=== PATIENT | female | born 1980 | race Caucasian/White ===

== ENCOUNTER 2020-04-23 09:20 | Outpatient (REF) | payer OTHER, SELFPAY | END 2020-04-23 09:21 | disposition home or self-care (01) | LOC: HO.LAB 09:20 | PROVIDERS: Visit Provider Nurse Practitioner Family | DX: Z20.828 Contact with and (suspected) exposure to other viral communicable diseases (principal) | CPT/HCPCS: U0003 ==

== ENCOUNTER 2020-06-02 11:57 | Outpatient (REF) | payer OTHER, SELFPAY ==
[2020-06-02 13:55] LABS: MANUAL DIFF FLAG NO
[2020-06-02 13:59] LABS: Basophils Percent Auto 0.3 % (0-2); Eosinophils Percent Auto 0.3 % (0-4); Hemoglobin 15.1 g/dl (12.0-16.0); Imm Gran Abs Auto 0.01 X10*3/uL (0.00-0.03); Imm Gran Pct Auto 0.3 % (0.0-0.4); Lymphocytes Absolute Auto 1.4 X10*3/uL (1.2-4.9); Lymphocytes Percent Auto 39.5 % (20-40); Mean Corpuscular HGB Conc 33.6 g/dl (31.0-35.0); Mean Corpuscular Hemoglobin 31.5 pg (27.0-33.0); Mean Corpuscular Volume 93.8 fL (80-98); Mean Platelet Volume 11.9 fL (9.4-12.3); Monocytes Absolute Auto 0.5 X10*3/uL (0.1-1.2); Monocytes Percent Auto 12.9 % (2-11); Neutrophils Absolute Auto 1.7 X10*3/uL (2.0-8.3); Neutrophils Percent Auto 46.7 % (45-73); Platelet Count 210 X10*3/uL (160-400); White Blood Count 3.7 X10*3/uL (4.8-10.8)
[2020-06-02 14:30] LABS: Anion Gap 14 (12-20); Blood Urea Nitrogen 11 mg/dL (9-16); Calcium 8.5 mg/dL (8.4-10.2); Carbon Dioxide 24 mmol/L (22-29); Chloride 106 mmol/L (96-108); Cholesterol 191 mg/dL; Estimated Glomerular Filt Rate > 60; Glucose Fasting 79 mg/dL (60-99); HDL Cholesterol 58 mg/dL; LDL Cholesterol Calculated 116 mg/dl; Potassium 4.1 mmol/l (3.3-5.1); Sodium 140 mmol/L (135-145); Triglycerides 85 mg/dL
== END 2020-06-02 11:58 | disposition home or self-care (01) ==
LOC: HO.HMGCLDS 11:57
PROVIDERS: PCP Internal Medicine; Visit Provider Internal Medicine
DX: Z00.01 Encounter for general adult medical examination with abnormal findings (principal); R11.2 Nausea with vomiting, unspecified; R12 Heartburn; Z20.828 Contact with and (suspected) exposure to other viral communicable diseases
CPT/HCPCS: 36415; 80048; 80061; 85025

== ENCOUNTER 2021-07-12 11:44 | Outpatient (REF) | payer OTHER, SELFPAY ==
[2021-07-12 12:06] LABS: Binax Internal Control QC Valid; Binax Now Covid-19 Ag Negative (Negative)
== END 2021-07-12 11:45 | disposition home or self-care (01) ==
LOC: HO.HMGCLDS 11:44
PROVIDERS: PCP Internal Medicine; Visit Provider Internal Medicine
DX: Z13.89 Encounter for screening for other disorder (principal)

== ENCOUNTER 2023-01-31 10:42 | Outpatient (AMB) | payer OTHER, SELFPAY ==
[2023-01-31 10:59] VITALS: BP 130/70; PULSE 74; TEMP 36.6; O2SAT 98
--- NOTE | 2023-01-31 10:59 | AM.OFFWIN_ITS ---
Intake Vital Signs 01/31/23 10:59 Height 5 ft 6 in Weight 124 lb BMI 20.0 BP 130/70 Blood Pressure Location Lt brachial Position Sitting Pulse 74 Pulse Source Pulse Oximeter Temp 97.8 F Temp Source Temporal Artery Scan Pulse Oximetry (%) 98 Intake Visit Reasons: EST/arm pain going up into shoulder Intake Note: pt is here for c/o arm pain going into shoulder Patient Tobacco Use Status: Former Tobacco user Accompanied by: Self / Same As Patient Allergies aspirin [ASPIRIN] Allergy (Severe, Verified 01/31/23 11:36) ANAPHYLAXIS, throat closes, chest pain, throat swelling Medication List - Last Reconciled 01/31/23 by Edy Olmstead MD buspirone 7.5 mg PO BID sumatriptan succinate 25 mg PO Q2-4H PRN Do you need a note to return to daycare/school/sports/work: Yes HPI EST/arm pain going up into shoulder HPI Details 42-year-old female presents to the office for a sick visit. Patient is complaining of pain the left side of the neck. Symptoms started a few days ago. Pain is radiating from the left finger up to the neck. She has been diagnosed with fibromyalgia in the past. [facility] Medical History Heartburn Migraine Surgical History History of facial surgery Family History Father No problems noted. Mother Abdominal hernia History of back surgery Heart murmur CVD (cardiovascular disease) Arthritis Brother No problems noted. Brother No problems noted. Brother No problems noted. Sister No problems noted. Son No problems noted. Social History Alcohol intake: current Alcohol intake frequency: a few times a month Alcohol type: wine Patient Tobacco Use Status: Former Tobacco user Physical Exam Vital Signs: Last Vital Signs Temp 97.8 F 01/31/23 10:59 Pulse 74 01/31/23 10:59 BP 130/70 01/31/23 10:59 Pulse Ox 98 01/31/23 10:59 BMI result Body Mass Index 20.0 Const General: cooperative and healthy appearing Nutritional Appearance: well nourished Orientation/consciousness: patient oriented x3 Limitations: no limitations HEENT Head: Yes normal to inspection Eyes General: appearance normal, both eyes and all related structures Neck Other: Discomfort over the left trapezius. Neck: Yes normal visual inspection Resp Effort & Inspection: normal respiratory effort Neuro General: patient oriented x3 Assessment & Plan Assessment & Plan (1) Sprain of cervical neck: Code(s): S13.9XXA - Sprain of joints and ligaments of unspecified parts of neck, initial encounter Plan: Meloxicam and cyclobenzaprine called in. Patient was encouraged to follow-up with her primary care provider. Coding Level of Care Code Est Pt Level 3 (54402) Diagnoses Sprain of cervical neck S13.9XXA
== END 2023-01-31 12:04 | disposition home or self-care (01) ==
PROVIDERS: PCP Internal Medicine; Visit Provider Internal Medicine
DX: S13.9XXA Sprain of joints and ligaments of unspecified parts of neck, initial encounter (principal)
CPT/HCPCS: 99213

== ENCOUNTER 2023-02-15 08:39 | Outpatient (AMB) | payer OTHER, SELFPAY ==
--- NOTE | 2023-02-09 11:13 | MHC.PC.OV ---
Intake Visit Reasons: Annual PE Allergies aspirin [ASPIRIN] Allergy (Severe, Verified 01/31/23 11:36) ANAPHYLAXIS, throat closes, chest pain, throat swelling PFSH Medical History Heartburn Migraine Surgical History History of facial surgery Family History Father No problems noted. Mother Abdominal hernia History of back surgery Heart murmur CVD (cardiovascular disease) Arthritis Brother No problems noted. Brother No problems noted. Brother No problems noted. Sister No problems noted. Son No problems noted. Social History Alcohol intake: current Alcohol intake frequency: a few times a month Alcohol type: wine Patient Tobacco Use Status: Former Tobacco user Physical exam (Primary Care) Tobacco/Smoking Status: Tobacco use Status Patient Tobacco Use Status Former Tobacco user 01/31/23 11:07 Coding Diagnoses
--- NOTE | 2023-02-15 08:42 | A.OFFPC_ITS ---
Vital Signs 02/15/23 08:46 Height 5 ft 6 in Weight 127 lb BMI 20.5 BP 90/60 Blood Pressure Location Lt brachial Position Sitting Pulse 95 Pulse Source Pulse Oximeter Pulse Oximetry (%) 67 L Oxygen Delivery Method Room Air Intake Visit Reasons: Annual PE Intake Note: Pt is here today for her PE Is last menstrual period known: Yes Last menstrual period: 01/26/23 Allergies aspirin [ASPIRIN] Allergy (Severe, Verified 02/15/23 08:50) ANAPHYLAXIS, throat closes, chest pain, throat swelling Medication List - Last Reconciled 02/15/23 by Ambar King MD buspirone 10 mg PO BID meloxicam 15 mg PO DAILY sertraline mg PO Tobacco use date assessed: 02/15/23 Dental Screening Dental Screen Date: 02/15/23 Did you have a dental visit in the last 12 months?: Yes Did you have a dental problem in the last 6 months where you did not have access to dental care?: No Was dental information given to patient?: Patient has dentist HPI Annual PE HPI Details 43-year-old lady here today for physical exam. She is due for her cervical cancer screening and screening mammogram. Has had 3 COVID vaccine has not yet had her booster and is due for her yearly flu shot and also her Tdap. Has anxiety depression currently , [facility], stable and controlled on present treatment Complains of shooting pain in her left palm going up left forearm and up to left shoulder. This started approximately a week ago, no history of trauma, but uses her left hand a lot at work. Has been taking meloxicam which does not afford much improvement in pain, but was prescribed cyclobenzaprine at the walk-in which helps with muscle spasms and helps her relax at night. [facility] Medical History (Updated 02/15/23 @ 09:23 by Ambar King MD) Anxiety and depression Fracture of left distal radius Migraine Surgical History (Updated 02/15/23 @ 08:56 by Ambar King MD) History of facial surgery History of open reduction and internal fixation (ORIF) procedure Family History Father No problems noted. Mother Abdominal hernia History of back surgery Heart murmur CVD (cardiovascular disease) Arthritis Mental health disorder Brother No problems noted. Brother No problems noted. Brother No problems noted. Sister No problems noted. Son No problems noted. Social History (Updated 02/15/23 @ 09:20 by Ambar King MD) Housing: House Alcohol intake: current Alcohol intake frequency: a few times a month Alcohol type: wine Patient Tobacco Use Status: Former Tobacco user e-Cigarette/Vaping Use: Currently Using Substance Use Type: Marijuana service: No Current occupational status: employed Cognitive needs: No Hearing needs: No Vision needs: Yes Female Reproductive History Menstrual Date of last menstrual period: 01/26/23 Questionnaire PHQ-9 Over the last 2 weeks, how often have you been bothered by any of the following problems? 1. Little interest or pleasure in doing things: several days 2. Feeling down, depressed, or hopeless: several days 3. Trouble falling or staying asleep, or sleeping too much: more than half the days 4. Feeling tired or having little energy: not at all 5. Poor appetite or overeating: more than half the days 6. Feeling bad about yourself - or that you are a failure or have let yourself or your family down: not at all 7. Trouble concentrating on things, such as reading the newspaper or watching television: not at all 8. Moving or speaking so slowly that other people could have noticed. Or the opposite - being so fidgety or restless that you have been moving around a lot more than usual: several days 9. Thoughts that you would be better off or of hurting yourself in some way: not at all Total score: 7 Depression Screening Interpretation: Positive (Currently sees [facility] in [place]) Depression Screening Follow-up: Existing condition and In treatment Source: Developed by Drs. Gray Ochoa, Arielle Mar, Travon Mueller and colleagues, with an educational farzaneh from [employer]. Thrive Questionnaire Date Thrive assessed: 02/15/23 I am a: Patient What is your living situation today?: I have a steady place to live Within the past 12 months, did the food you bought not last and you didn't have the money to get more?: Sometimes True Within the past 12 months, did you worry whether your food would run out before you got money to buy more?: Sometimes True Do you have trouble paying for medicines?: No Do you have trouble getting transportation to medical appointments?: Yes Do you have trouble paying your heating and electricity bill?: No Do you have trouble taking care of your child, family member or friend?: No Do you have trouble with day-to-day activities such as bathing, preparing meals, shopping, managing finances, etc.?: No Are you currently unemployed and looking for a job?: No Are you interested in more education?: No Please select the resources that you would like help with: None AUDIT C Alcohol Use Questionnaire (AUDIT-C) 1. How often do you have a drink containing alcohol?: Never 3. How often do you have six or more drinks on one occasion?: Never Total Score: 0 VAUGHN-7 AMB Questionnaire VAUGHN-7 Date VAUGHN - 7 assessed: 02/15/23 Feeling nervous, anxious, or on edge: 1 = Several days Not being able to stop or control worryin = Several days Worrying too much about different things: 1 = Several days Trouble relaxin = Several days Being so restless that it is hard to sit still: 1 = Several days Becoming easily annoyed or irritable: 2 = More than half the days Feeling afraid as if something awful might happen: 0 = Not at all Total VAUGHN-7 score (0-4 normal; 5-9 mild; 10-14 moderate; 15-21 severe): 7 Source: Developed by Drs. Gray Ochoa, Arielle Mar, Travon Mueller and colleagues, with an educational farzaneh from [employer]. Review of Systems Const Denies body aches, Denies fatigue, Denies fever(s), Denies headache(s) and Denies weakness Eyes Denies change in vision, Denies eye discharge, Denies itchy eyes and Reports requires corrective lenses ENT Denies dysphagia, Denies dizziness, Denies headache(s), Denies nasal congestion, Denies nasal discharge and Denies sore throat Card Denies chest pain, Denies lightheadedness, Denies palpitations and Denies dyspnea Resp Denies chest congestion, Denies hemoptysis, Denies excessive phlegm production, Denies pain on inspiration, Denies pain with cough, Denies dyspnea and Denies wheezing GI Denies abdominal pain, Denies melena, Denies bloating, Denies hematochezia, Denies change in bowel habits, Denies dysphagia and Denies hematemesis Denies urinary frequency, Denies dysuria and Denies urinary urgency Musc Denies myalgias, Denies arthralgias and Denies joint swelling Skin/Breast Denies lesions and Denies rash Neuro Denies dizziness, Denies headache(s) and Denies weakness Psych Denies abnormal sleep pattern, Denies anxiety and Denies depression Endo Denies fatigue, Denies polydipsia, Denies polyuria and Denies palpitations Fred/Lymph Denies easy bruising Aller/Immun Denies itchy eyes, Denies seasonal rhinorrhea and Denies wheezing Physical exam (Primary Care) Vital Signs: Last Vital Signs Pulse 95 02/15/23 08:46 BP 90/60 02/15/23 08:46 Pulse Ox 67 L 02/15/23 08:46 Oxygen Delivery Method Room Air 02/15/23 08:46 BMI result Body Mass Index 20.5 Tobacco/Smoking Status: Tobacco use Status Tobacco use date assessed 02/15/23 02/15/23 08:47 Patient Tobacco Use Status Former Tobacco user 02/15/23 08:47 e-Cigarette/Vaping Use Currently Using 02/15/23 08:47 PHQ-9: PHQ-9 Score PHQ-9: Total score 12 02/15/23 08:53 Depression Screening Interpretation: Positive (Currently sees [facility] in [place]) Depression Screening Follow-up: Existing condition and In treatment Thrive Assessment: Date of Thrive Assessment Date Thrive assessed 02/15/23 02/15/23 08:51 Const Orientation/consciousness: patient oriented x3 HENMT Head: Yes normocephalic Ears: hearing grossly normal bilaterally, external ears normal, TM's normal bilaterally and EAC's normal General nose exam: Normal external nose present Face and sinus: Yes face symmetric Mouth: Normal oral and palatal mucosa present, tongue normal, oropharynx normal and moist mucous membranes Throat: Yes posterior oropharynx normal Eyes General: appearance normal, both eyes and all related structures Eyelids: Yes eyelids normal Conjunctivae: conjunctivae normal Sclerae: sclerae normal Pupils: Equal, round and reactive pupils present EOM: EOMs intact bilaterally Neck Neck: Yes normal visual inspection, Yes full ROM, Yes no lymphadenopathy and Yes supple Thyroid: Thyroid normal (Nonpalpable) Chest Chest palpation & inspection: normal inspection of the chest Breast/axilla palpation: normal palpation of the breasts and normal palpation of the axillae Resp Effort & Inspection: normal respiratory effort and able to speak in complete sentences Auscultation: clear to auscultation bilaterally Cardio Bruits: no abdominal aortic bruits GI Inspection: Yes normal to inspection Palpation (GI): No Abdominal aortic bruit present, Soft to palpation, nontender, no guarding and no masses General: Yes bladder normal to palpation and Yes no CVA tenderness External Female Exam: normal external appearance and normal appearance of the urethra Speculum Exam - Vagina: normal appearance of the vagina, normal palpation and normal vaginal discharge Speculum Exam - Cervix: normal appearance of the cervix and normal palpation Bimanual exam- vagina & uterus: normal bimanual exam, normal palpation, bladder normal to palpation, consistency normal, normal palpation and non-tender Bimanual Exam- Adnexa, other: normal adnexae, no masses, normal and No adnexal tenderness Back/Spine/Pelvis Back: no CVA tenderness Skin General skin exam: no rashes or lesions noted Neuro General: patient oriented x3, gait normal, moves all extremities, Normal light touch and pain sensation, no focal motor deficits, CN's II-XI intact bilaterally and normal sensation to monofilament Cranial nerves: Yes Equal, round and reactive pupils present Extrem Other: Tender nodular lesion on palm of left hand below the 3rd and 4th finger General: Yes normal to inspection, Yes full ROM, Yes no joint enlargement, Yes no clubbing, cyanosis or edema, Yes no calf tenderness and Yes normal gait Psych Appearance: grossly normal and well kempt Mental Status: mental status grossly normal Speech and movement: Normal speech and movement present Affect: normal affect Attitude: cooperative Thought process: Normal thought process present Thought content: Normal thought content present Assessment and Plan Assessment & Plan (1) Pain in left hand: Code(s): M79.642 - Pain in left hand Plan: Orthopedics consult obtain (2) Encounter for general adult medical examination with abnormal findings: Code(s): Z00.01 - Encounter for general adult medical examination with abnormal findings Plan: Will check appropriate labs. Recommended dental visit every 6 months and regular eye exams, at least every 2 years. Take adequate calcium in diet and vitamin-D 3 at 2000 IU per cap once a day, in addition to weight-bearing exercises to help maintain good muscle tone and weight control. Instructed to do self-breast exam, and scheduled for her initial yearly mammogram. Will cancer screening done. Recommended to get her COVID booster, Tdap given today, advised to get yearly flu shots. (3) Anxiety and depression: Comment: [facility] Code(s): F41.9 - Anxiety disorder, unspecified; F32.A - Depression, unspecified Plan: Currently followed by [facility], stable and controlled on present treatment (4) Cervical cancer screening: Code(s): Z12.4 - Encounter for screening for malignant neoplasm of cervix Plan: Pap smear done today Orders: Orders MM screening mammo BI Today Z12.31 - Encounter for screening mammogram for malignant neoplasm of breast Alanine Aminotransferase Today F32.A - Depression, unspecified, F41.9 - Anxiety disorder, unspecified, M79.642 - Pain in left hand, Z00.01 - Encounter for general adult medical examination with abnormal findings, Z13.1 - Encounter for screening for diabetes mellitus, Z13.220 - Encounter for screening for lipoid disorders Aspartate Amino Transferase Today F32.A - Depression, unspecified, F41.9 - Anxiety disorder, unspecified, M79.642 - Pain in left hand, Z00.01 - Encounter for general adult medical examination with abnormal findings, Z13.1 - Encounter for screening for diabetes mellitus, Z13.220 - Encounter for screening for lipoid disorders Glucose Fasting Today F32.A - Depression, unspecified, F41.9 - Anxiety disorder, unspecified, M79.642 - Pain in left hand, Z00.01 - Encounter for general adult medical examination with abnormal findings, Z13.1 - Encounter for screening for diabetes mellitus, Z13.220 - Encounter for screening for lipoid disorders Lipid Panel Today F32.A - Depression, unspecified, F41.9 - Anxiety disorder, unspecified, M79.642 - Pain in left hand, Z00.01 - Encounter for general adult medical examination with abnormal findings, Z13.1 - Encounter for screening for diabetes mellitus, Z13.220 - Encounter for screening for lipoid disorders Vitamin D 25-OH Total Today F32.A - Depression, unspecified, F41.9 - Anxiety disorder, unspecified, M79.642 - Pain in left hand, Z00.01 - Encounter for general adult medical examination with abnormal findings, Z13.1 - Encounter for screening for diabetes mellitus, Z13.220 - Encounter for screening for lipoid disorders TDaP Immunization Today Z23 - Encounter for immunization Pap Smear Today Z12.4 - Encounter for screening for malignant neoplasm of cervix Referrals Orthopedics Referral M79.642 - Pain in left hand Medications: New Boostrix Tdap (diphth,pertus(acell),tetanus) 0.5 mL IM ONCE 0.5 mL 0RF NS Z23 - Encounter for immunization Coding Level of Care Code Est Pt Prev Care 40-64y(99298) Diagnoses Pain in left hand M79.642 Encounter for general adult medical examination with abnormal findings Z00.01 Anxiety and depression F41.9; F32.A Cervical cancer screening Z12.4
[2023-02-15 08:46] VITALS: BP 90/60; PULSE 95; O2SAT 67; BMI 20.5
--- NOTE | 2023-02-15 09:41 | A.OFFPC_ITS ---
Vital Signs 02/15/23 08:46 Height 5 ft 6 in Weight 127 lb BMI 20.5 BP 90/60 Blood Pressure Location Lt brachial Position Sitting Pulse 95 Pulse Source Pulse Oximeter Pulse Oximetry (%) 67 L Oxygen Delivery Method Room Air Intake Visit Reasons: Annual PE Allergies aspirin [ASPIRIN] Allergy (Severe, Verified 02/15/23 08:50) ANAPHYLAXIS, throat closes, chest pain, throat swelling Medication List - Last Reconciled 02/15/23 by Ambar King MD buspirone 10 mg PO BID meloxicam 15 mg PO DAILY sertraline mg PO Tobacco use date assessed: 02/15/23 HPI Annual PE HPI Details 43-year-old lady here today for physical exam. She has anxiety depression currently on buspirone 10 mg taken twice a day and sertraline currently followed by psych associates in [place]. She has been feeling well except for pain in the palm of her left hand, which has been present now for several weeks. Unable to do repetitive motion with her left hand. She does have history of stress fracture status post surgery in 2014. [facility] Medical History (Updated 02/15/23 @ 09:23 by Ambar King MD) Anxiety and depression Fracture of left distal radius Migraine Surgical History (Updated 02/15/23 @ 08:56 by Ambar King MD) History of facial surgery History of open reduction and internal fixation (ORIF) procedure Family History Father No problems noted. Mother Abdominal hernia History of back surgery Heart murmur CVD (cardiovascular disease) Arthritis Mental health disorder Brother No problems noted. Brother No problems noted. Brother No problems noted. Sister No problems noted. Son No problems noted. Social History (Updated 02/15/23 @ 09:20 by Ambar King MD) Housing: House Alcohol intake: current Alcohol intake frequency: a few times a month Alcohol type: wine Patient Tobacco Use Status: Former Tobacco user e-Cigarette/Vaping Use: Currently Using Substance Use Type: Marijuana service: No Current occupational status: employed Cognitive needs: No Hearing needs: No Vision needs: Yes Questionnaire PHQ-9 Over the last 2 weeks, how often have you been bothered by any of the following problems? 1. Little interest or pleasure in doing things: several days 2. Feeling down, depressed, or hopeless: several days 3. Trouble falling or staying asleep, or sleeping too much: more than half the days 4. Feeling tired or having little energy: not at all 5. Poor appetite or overeating: more than half the days 6. Feeling bad about yourself - or that you are a failure or have let yourself or your family down: not at all 7. Trouble concentrating on things, such as reading the newspaper or watching television: not at all 8. Moving or speaking so slowly that other people could have noticed. Or the opposite - being so fidgety or restless that you have been moving around a lot more than usual: several days 9. Thoughts that you would be better off or of hurting yourself in some way: not at all Total score: 7 Depression Screening Interpretation: Positive (Currently sees [facility] in [place]) Depression Screening Follow-up: Existing condition and In treatment Source: Developed by Drs. Gray Ochoa, Arielle Mar, Travon Mueller and colleagues, with an educational farzaneh from [employer]. Thrive Questionnaire Date Thrive assessed: 02/15/23 I am a: Patient What is your living situation today?: I have a steady place to live Within the past 12 months, did the food you bought not last and you didn't have the money to get more?: Sometimes True Within the past 12 months, did you worry whether your food would run out before you got money to buy more?: Sometimes True Please select the resources that you would like help with: None AUDIT C Alcohol Use Questionnaire (AUDIT-C) 1. How often do you have a drink containing alcohol?: Never 3. How often do you have six or more drinks on one occasion?: Never Total Score: 0 VAUGHN-7 AMB Questionnaire VAUGHN-7 Date VAUGHN - 7 assessed: 02/15/23 Feeling nervous, anxious, or on edge: 1 = Several days Not being able to stop or control worryin = Several days Worrying too much about different things: 1 = Several days Trouble relaxin = Several days Being so restless that it is hard to sit still: 1 = Several days Becoming easily annoyed or irritable: 2 = More than half the days Feeling afraid as if something awful might happen: 0 = Not at all Total VAUGHN-7 score (0-4 normal; 5-9 mild; 10-14 moderate; 15-21 severe): 7 Source: Developed by Drs. Gray Ochoa, Arielle Mar, Travon Mueller and colleagues, with an educational farzaneh from [email or web address]. Review of Systems Const Denies body aches, Denies fatigue, Denies fever(s), Denies headache(s) and Denies weakness Eyes Denies change in vision and Reports requires corrective lenses ENT Denies dysphagia, Denies dizziness, Denies headache(s), Denies nasal congestion, Denies nasal discharge and Denies sore throat Card Denies chest pain, Denies lightheadedness, Denies palpitations and Denies dyspnea Resp Denies chest congestion, Denies dyspnea and Denies wheezing GI Denies abdominal pain, Denies melena, Denies bloating, Denies change in bowel habits and Denies dysphagia Denies urinary frequency, Denies dysuria and Denies urinary urgency Musc Denies myalgias, Denies arthralgias and Denies joint swelling Skin/Breast Denies lesions and Denies rash Neuro Denies dizziness, Denies headache(s) and Denies weakness Psych Reports as per HPI Endo Denies fatigue, Denies polydipsia, Denies polyuria and Denies palpitations Fred/Lymph Denies easy bruising Aller/Immun Denies seasonal rhinorrhea and Denies wheezing Physical exam (Primary Care) Vital Signs: Last Vital Signs Pulse 95 02/15/23 08:46 BP 90/60 02/15/23 08:46 Pulse Ox 67 L 02/15/23 08:46 Oxygen Delivery Method Room Air 02/15/23 08:46 BMI result Body Mass Index 20.5 Tobacco/Smoking Status: Tobacco use Status Tobacco use date assessed 02/15/23 02/15/23 09:42 Patient Tobacco Use Status Former Tobacco user 02/15/23 09:42 e-Cigarette/Vaping Use Currently Using 02/15/23 09:42 PHQ-9: PHQ-9 Score PHQ-9: Total score 7 02/15/23 09:42 Depression Screening Interpretation: Positive (Currently sees [facility] in [place]) Depression Screening Follow-up: Existing condition and In treatment Thrive Assessment: Date of Thrive Assessment Date Thrive assessed 02/15/23 02/15/23 09:42 Immunizations Boostrix Tdap Performing Provider: Ambar King MD Administered by: Lucinda Holt CMA on 02/15/23 09:41 Dose Route Admin Location Lot Number Expiration Date NDC Large [employer] Techn[employer] 0.5 mL IM Right Deltoid [id number] 03/28/25 71159-725-47 UUCUN VIS Given Date VIS Provided VIS Publication Date 02/15/23 Single Vaccine 21 Eligibility Eligibility Date Funding Source Not [facility] Eligible 02/15/23 Private Assessment and Plan Assessment & Plan (1) Encounter for general adult medical examination with abnormal findings: Code(s): Z00.01 - Encounter for general adult medical examination with abnormal findings (2) Anxiety and depression: Comment: [facility] Code(s): F41.9 - Anxiety disorder, unspecified; F32.A - Depression, unspecified Orders: Orders MM screening mammo BI 02/15/23 Z12.31 - Encounter for screening mammogram for malignant neoplasm of breast Alanine Aminotransferase 02/15/23 F32.A - Depression, unspecified, F41.9 - Anxiety disorder, unspecified, M79.642 - Pain in left hand, Z00.01 - Encounter for general adult medical examination with abnormal findings, Z13.1 - Encounter for screening for diabetes mellitus, Z13.220 - Encounter for screening for lipoid disorders Aspartate Amino Transferase 02/15/23 F32.A - Depression, unspecified, F41.9 - Anxiety disorder, unspecified, M79.642 - Pain in left hand, Z00.01 - Encounter for general adult medical examination with abnormal findings, Z13.1 - Encounter for screening for diabetes mellitus, Z13.220 - Encounter for screening for lipoid disorders Glucose Fasting 02/15/23 F32.A - Depression, unspecified, F41.9 - Anxiety disorder, unspecified, M79.642 - Pain in left hand, Z00.01 - Encounter for general adult medical examination with abnormal findings, Z13.1 - Encounter for screening for diabetes mellitus, Z13.220 - Encounter for screening for lipoid disorders Lipid Panel 02/15/23 F32.A - Depression, unspecified, F41.9 - Anxiety disorder, unspecified, M79.642 - Pain in left hand, Z00.01 - Encounter for general adult medical examination with abnormal findings, Z13.1 - Encounter for screening for diabetes mellitus, Z13.220 - Encounter for screening for lipoid disorders Vitamin D 25-OH Total 02/15/23 F32.A - Depression, unspecified, F41.9 - Anxiety disorder, unspecified, M79.642 - Pain in left hand, Z00.01 - Encounter for general adult medical examination with abnormal findings, Z13.1 - Encounter for screening for diabetes mellitus, Z13.220 - Encounter for screening for lipoid disorders TDaP Immunization 02/15/23 Z23 - Encounter for immunization Pap Smear 02/15/23 Z12.4 - Encounter for screening for malignant neoplasm of cervix Referrals Orthopedics Referral M79.642 - Pain in left hand Coding Diagnoses Encounter for general adult medical examination with abnormal findings Z00.01 Anxiety and depression F41.9; F32.A
== END 2023-02-15 10:25 | disposition home or self-care (01) ==
PROVIDERS: PCP Internal Medicine; Visit Provider Internal Medicine
DX: Z00.01 Encounter for general adult medical examination with abnormal findings (principal); M79.642 Pain in left hand; F41.9 Anxiety disorder, unspecified; F32.A Depression, unspecified; Z23 Encounter for immunization
CPT/HCPCS: 90471; 90715; 99396

== ENCOUNTER 2023-02-15 09:34 | Outpatient (REF) | payer OTHER, SELFPAY ==
[2023-02-15 12:44] LABS: Alanine Aminotransferase 17 U/L (0-31); Aspartate Amino Transferase 24 U/L (5-31); Cholesterol 214 mg/dL (<200); Glucose Fasting 69 mg/dL (60-99); HDL Cholesterol 67 mg/dL (>40); LDL Cholesterol Calculated 135 mg/dL (<100); Triglycerides 60 mg/dL (<150); Vitamin D 25-OH Total 19.1 ng/mL (>30)
== END 2023-02-15 09:35 | disposition home or self-care (01) ==
LOC: HO.HMGCLDS 09:34
PROVIDERS: PCP Internal Medicine; Visit Provider Internal Medicine
DX: Z00.01 Encounter for general adult medical examination with abnormal findings (principal); Z13.1 Encounter for screening for diabetes mellitus; Z13.220 Encounter for screening for lipoid disorders; M79.642 Pain in left hand; F32.A Depression, unspecified; F41.9 Anxiety disorder, unspecified
CPT/HCPCS: 36415; 80061; 82306; 82947; 84450; 84460

== ENCOUNTER 2023-02-15 10:40 | Outpatient (REF) | payer OTHER, SELFPAY ==
[2023-02-20 18:49] LABS: HPV mRNA E6/E7 rflx Not Detected (Not Detected)
== END 2023-02-15 10:41 | disposition home or self-care (01) ==
LOC: HO.LAB 10:40
PROVIDERS: Visit Provider Internal Medicine
DX: Z12.4 Encounter for screening for malignant neoplasm of cervix (principal); Z11.51 Encounter for screening for human papillomavirus (HPV)
CPT/HCPCS: 87624; 88142

== ENCOUNTER 2023-02-21 09:43 | Outpatient (AMB) | payer OTHER, SELFPAY ==
--- NOTE | 2023-02-21 09:50 | A.OFFVIS_ITS ---
Intake Vital Signs 02/21/23 09:53 Height 5 ft 6 in Weight 127 lb BMI 20.5 Handedness Right Intake Visit Reasons: [employer]-Pain in left hand Intake Note: Jolynn is a 43 year old right hand dominant female who presents today as a new patient for a evaluation for her left hand pain. Patient reports ongoing numbness and pain. She states that her pain radiate up to her shoulder. Having off and on numbness on her RF and PF and its worse at night. Allergies aspirin [ASPIRIN] Allergy (Severe, Verified 02/21/23 09:53) ANAPHYLAXIS, throat closes, chest pain, throat swelling Medication List - Last Reconciled 02/21/23 by Alexandra Ghosh MD buspirone 10 mg PO BID cyclobenzaprine 10 mg PO BEDTIME PRN meloxicam 15 mg PO DAILY sertraline mg PO HPI HPI Comments History of Present Illness Details She appeared tearful, says she is annoyed and have not slept well due to pain and worry. 3 weeks, no fall/injury she can remembers. Points to middle of palm, that turned into swelling, bruising, knot. First noticed neck hurting at night, then it radiated to shoulder blade. Over few days, she noticed the changes on her hand. Can't hold phone due to pain. Does not lock on fingers. left 4th and 5th finger numbness. Symptoms from left although she is right handed. Also has neck pain. Denies elbow pain. No fever. 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 Treatment done so far: NSAIDs - meloxicam. Flexeril for night time. therapy - none injection - none surgery - none PFS Medical History (Updated 02/21/23 @ 10:09 by Alexandra Ghosh MD) Anxiety and depression Fracture of left distal radius Migraine Surgical History (Updated 02/15/23 @ 08:56 by Ambar King MD) History of facial surgery History of open reduction and internal fixation (ORIF) procedure Family History Father No problems noted. Mother Abdominal hernia History of back surgery Heart murmur CVD (cardiovascular disease) Arthritis Mental health disorder Brother No problems noted. Brother No problems noted. Brother No problems noted. Sister No problems noted. Son No problems noted. Social History Housing: House Alcohol intake: current Alcohol intake frequency: a few times a month Alcohol type: wine Patient Tobacco Use Status: Former Tobacco user e-Cigarette/Vaping Use: Currently Using Substance Use Type: Marijuana service: No Current occupational status: employed Cognitive needs: No Hearing needs: No Vision needs: Yes Review of Systems Const All systems reviewed & are unremarkable except as noted in HPI and below Physical Exam Vital Signs: BMI result Body Mass Index 20.5 Constitutional: Patient appears to be in no acute distress, well nourished and well developed. MSK: Inspection reveals appropriate head and neck positioning. She is diffusely tender on several areas including right shoulder and right hand. Although she is not tender on any side spinous processes and not tender in elbow. Cervical ROM was full. Spurling's sign negative. But it aggravated some tightness on upper trapezius P Could not range the right shoulder due to pain. Hawkin's test is could not do due to pain. Could not do empty can sign due to pain. No intrinsic hand weakness noted. No atrophy noted. Ruba test negative. Carpal compression test negative. Tinel sign negative. Tender even to light touch on right palm. No triggering of fingers. Strength is 5/5 in all muscle groups tested. No increased tone noted. Neurological: Neurologic examination of the upper and lower extremities was nonfocal with intact sensation, muscle stretch reflexes and without focal motor deficits . Allred?s negative bilaterally. Babinski was down going bilaterally. Clonus was negative. Gait is non-antalgic without loss of balance. Results Reviewed Results Reviewed: No past imaging available for my review. I reviewed records from the following: She recently went to walk-in clinic for cervical strain. Prescribed NSAIDs and Flexeril. Assessment & Plan Assessment & Plan (1) Hand pain: Code(s): M79.643 - Pain in unspecified hand (2) Cervical radiculitis: Code(s): M54.12 - Radiculopathy, cervical region (3) Shoulder pain: Code(s): M25.519 - Pain in unspecified shoulder Plan Difficult to pinpoint exactly where pain is coming from. However no neurologic findings on exam except in areas where she is limited by pain. We will start with doing imaging today: Cervical x-ray, shoulder x-ray including shoulder please, right hand/wrist. Will re-evaluate next week after imaging has been done. She wants to go back to work but until x-rays have been done, I will keep her out of work for today. Assessment and plan discussed with patent, and patient was agreeable. All questions were answered thoroughly. Orders: Orders XR hand wrist LT Today M79.643 - Pain in unspecified hand XR shoulder LT min 2V Today M25.519 - Pain in unspecified shoulder XR cervical spine 3V Today M54.12 - Radiculopathy, cervical region Coding Level of Care Code New Pt Level 4 (85732) Diagnoses Hand pain M79.643 Cervical radiculitis M54.12 Shoulder pain M25.519
[2023-02-21 09:53] VITALS: BMI 20.5
== END 2023-02-21 10:29 | disposition home or self-care (01) ==
PROVIDERS: PCP Internal Medicine; Visit Provider Physical Medicine & Rehabilitation
DX: M79.642 Pain in left hand (principal); M54.12 Radiculopathy, cervical region; M25.512 Pain in left shoulder
CPT/HCPCS: 99203

== ENCOUNTER 2023-02-21 09:43 | Outpatient (REF) | payer OTHER, SELFPAY ==
--- NOTE | ~2023-02-21 | XR_ITS ---
EXAMINATION: XR CERVICAL SPINE XR LEFT SHOULDER XR LEFT HAND AND WRIST CLINICAL INDICATIONS: Radiculopathy and neck pain. COMPARISON: None available. TECHNIQUE: Left hand 4 views. Left shoulder 2 views and cervical spine 3 views. FINDINGS: CERVICAL SPINE: There is mild straightening of cervical lordosis. The vertebral heights, alignment and disc heights are normal. No visible acute fracture, dislocation or subluxation seen. No bony erosive changes. The soft tissues are normal. LEFT SHOULDER: The glenohumeral and acromioclavicular joint alignment is normal. No fracture, dislocation, loose bodies or bony erosive changes. There is no soft tissue calcification. LEFT HAND: The metacarpophalangeal, proximal interphalangeal and distal interphalangeal joints are maintained normal. No bony erosive changes, enthesophytes or soft tissue swelling is seen. There is an old ulnar styloid process unhealed fracture. There is a volar distal radial plate and screws for an old healed fracture. The carpal bones are unremarkable. XR/XR hand wrist LT IMPRESSION: 1. Mild straightening of cervical lordosis otherwise unremarkable cervical spine exam. 2. Unremarkable left shoulder. 3. Old healed distal radial fracture with hardware. Unhealed ulnar styloid process fracture. No acute fracture or dislocation seen in the left hand or wrist area.
--- NOTE | ~2023-02-21 | XR_ITS ---
EXAMINATION: XR CERVICAL SPINE XR LEFT SHOULDER XR LEFT HAND AND WRIST CLINICAL INDICATIONS: Radiculopathy and neck pain. COMPARISON: None available. TECHNIQUE: Left hand 4 views. Left shoulder 2 views and cervical spine 3 views. FINDINGS: CERVICAL SPINE: There is mild straightening of cervical lordosis. The vertebral heights, alignment and disc heights are normal. No visible acute fracture, dislocation or subluxation seen. No bony erosive changes. The soft tissues are normal. LEFT SHOULDER: The glenohumeral and acromioclavicular joint alignment is normal. No fracture, dislocation, loose bodies or bony erosive changes. There is no soft tissue calcification. LEFT HAND: The metacarpophalangeal, proximal interphalangeal and distal interphalangeal joints are maintained normal. No bony erosive changes, enthesophytes or soft tissue swelling is seen. There is an old ulnar styloid process unhealed fracture. There is a volar distal radial plate and screws for an old healed fracture. The carpal bones are unremarkable. XR/XR shoulder LT min 2V IMPRESSION: 1. Mild straightening of cervical lordosis otherwise unremarkable cervical spine exam. 2. Unremarkable left shoulder. 3. Old healed distal radial fracture with hardware. Unhealed ulnar styloid process fracture. No acute fracture or dislocation seen in the left hand or wrist area.
--- NOTE | ~2023-02-21 | XR_ITS ---
EXAMINATION: XR CERVICAL SPINE XR LEFT SHOULDER XR LEFT HAND AND WRIST CLINICAL INDICATIONS: Radiculopathy and neck pain. COMPARISON: None available. TECHNIQUE: Left hand 4 views. Left shoulder 2 views and cervical spine 3 views. FINDINGS: CERVICAL SPINE: There is mild straightening of cervical lordosis. The vertebral heights, alignment and disc heights are normal. No visible acute fracture, dislocation or subluxation seen. No bony erosive changes. The soft tissues are normal. LEFT SHOULDER: The glenohumeral and acromioclavicular joint alignment is normal. No fracture, dislocation, loose bodies or bony erosive changes. There is no soft tissue calcification. LEFT HAND: The metacarpophalangeal, proximal interphalangeal and distal interphalangeal joints are maintained normal. No bony erosive changes, enthesophytes or soft tissue swelling is seen. There is an old ulnar styloid process unhealed fracture. There is a volar distal radial plate and screws for an old healed fracture. The carpal bones are unremarkable. XR/XR cervical spine 3V IMPRESSION: 1. Mild straightening of cervical lordosis otherwise unremarkable cervical spine exam. 2. Unremarkable left shoulder. 3. Old healed distal radial fracture with hardware. Unhealed ulnar styloid process fracture. No acute fracture or dislocation seen in the left hand or wrist area.
== END 2023-02-21 09:44 | disposition home or self-care (01) ==
LOC: HO.HOSX 09:43
PROVIDERS: PCP Internal Medicine; Visit Provider Physical Medicine & Rehabilitation
DX: M54.12 Radiculopathy, cervical region (principal); M25.512 Pain in left shoulder; M79.642 Pain in left hand
CPT/HCPCS: 72040; 73030; 73110; 73130

== ENCOUNTER 2023-02-28 | Outpatient (REF) | payer OTHER, SELFPAY | END 2023-02-28 00:01 | disposition home or self-care (01) | LOC: CF | PROVIDERS: Visit Provider Physical Medicine & Rehabilitation | DX: M77.02 Medial epicondylitis, left elbow (principal); M79.18 Myalgia, other site; R20.0 Anesthesia of skin | CPT/HCPCS: 20552; 99212 ==

== ENCOUNTER 2023-02-28 10:27 | Outpatient (AMB) | payer OTHER, SELFPAY ==
--- NOTE | 2023-02-28 10:38 | A.OFFVIS_ITS ---
Intake Vital Signs 02/28/23 10:39 Height 5 ft 6 in Weight 127 lb BMI 20.5 Intake Visit Reasons: ov-Pain in left hand Intake Note: Jolynn is a 43 year old female who presents today for a follow up of her left hand pain. She reports that her symptoms have remained about the same, although she now additionally has increased pain on the ulnar aspect of the hand that radiates to the elbow. Allergies aspirin [ASPIRIN] Allergy (Severe, Verified 02/28/23 10:40) ANAPHYLAXIS, throat closes, chest pain, throat swelling Medication List - Last Reconciled 02/28/23 by Alexandra Ghosh MD buspirone 10 mg PO BID cyclobenzaprine 10 mg PO BEDTIME PRN meloxicam 15 mg PO DAILY sertraline mg PO HPI HPI Comments History of Present Illness Details On last consult, she reported 3 weeks of left hand pain, no fall/injury she can remembers. Pointed to middle of palm, that turned into swelling, bruising, knot. First noticed neck hurting at night, then it radiated to shoulder blade. Over few days, she noticed the changes on her hand. Can't hold phone due to pain. Does not lock on fingers. left 4th and 5th finger numbness. Symptoms from left although she is right handed. Also has neck pain. Denies elbow pain. No fever. 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 Treatment done so far: NSAIDs - meloxicam. Flexeril for night time. therapy - none injection - none surgery - none Since last visit, we have done x-rays. Left cervical x-ray showed strengthening of lordosis, preserved disc spaces. Left hand x-ray - essentially unremarkable, no erosions, old healed ulnar styloid fracture Left shoulder [id number] unremarkable. Today pain still coming from left hand. Got worse, affecting all of left hand, going up the elbow. Finger numbness. [facility] Medical History (Updated 02/28/23 @ 10:58 by Alexandra Ghosh MD) Hand numbness Myofascial pain Anxiety and depression Fracture of left distal radius Migraine Surgical History History of open reduction and internal fixation (ORIF) procedure History of facial surgery Family History Father No problems noted. Mother Abdominal hernia History of back surgery Heart murmur CVD (cardiovascular disease) Arthritis Mental health disorder Brother No problems noted. Brother No problems noted. Brother No problems noted. Sister No problems noted. Son No problems noted. Social History Housing: House Alcohol intake: current Alcohol intake frequency: a few times a month Alcohol type: wine Patient Tobacco Use Status: Former Tobacco user e-Cigarette/Vaping Use: Currently Using Substance Use Type: Marijuana service: No Current occupational status: employed Cognitive needs: No Hearing needs: No Vision needs: Yes Physical Exam Vital Signs: BMI result Body Mass Index 20.5 Constitutional: Patient appears to be in no acute distress, well nourished and well developed. MSK: Inspection reveals appropriate head and neck positioning. Cervical ROM was full. Spurling's sign negative. Pain today is more localized. Trigger points noted in left upper trapezius. Left medial epicondyle and common flexor tendons were tender. Positive carpal compression left. No intrinsic hand weakness. No atrophy. Neurological: Neurologic examination of the upper and lower extremities was nonfocal with intact sensation, muscle stretch reflexes and without focal motor deficits . Allred?s negative bilaterally. Babinski was down going bilaterally. Clonus was negative. Gait is non-antalgic without loss of balance. Office Procedures Therapeutic Injection Therapeutic Injection Details: Trigger point injection, left upper trapezius. Conset obtained. Trigger points palpated on left upper trapezius. 1 ml of 2% Lidocaine injected in each site, total of 2 mL. Patient tolerated procedure well. Post-injection instructions given. 93192-Vpebsac Point Injection 1 or 2 sites All charges added?: Procedure code (CPT) selection complete Results Reviewed Results Reviewed: XR CERVICAL SPINE XR LEFT SHOULDER XR LEFT HAND AND WRIST CLINICAL INDICATIONS: Radiculopathy and neck pain. COMPARISON: None available. TECHNIQUE: Left hand 4 views. Left shoulder 2 views and cervical spine 3 views. FINDINGS: CERVICAL SPINE: There is mild straightening of cervical lordosis. The vertebral heights, alignment and disc heights are normal. No visible acute fracture, dislocation or subluxation seen. No bony erosive changes. The soft tissues are normal. LEFT SHOULDER: The glenohumeral and acromioclavicular joint alignment is normal. No fracture, dislocation, loose bodies or bony erosive changes. There is no soft tissue calcification. LEFT HAND: The metacarpophalangeal, proximal interphalangeal and distal interphalangeal joints are maintained normal. No bony erosive changes, enthesophytes or soft tissue swelling is seen. There is an old ulnar styloid process unhealed fracture. There is a volar distal radial plate and screws for an old healed fracture. The carpal bones are unremarkable. XR/XR shoulder LT min 2V IMPRESSION: 1. Mild straightening of cervical lordosis otherwise unremarkable cervical spine exam. 2. Unremarkable left shoulder. 3. Old healed distal radial fracture with hardware. Unhealed ulnar styloid process fracture. No acute fracture or dislocation seen in the left hand or wrist area. Assessment & Plan Assessment & Plan (1) Myofascial pain: Code(s): M79.18 - Myalgia, other site (2) Hand numbness: Code(s): R20.0 - Anesthesia of skin (3) Medial epicondylitis: Code(s): M77.00 - Medial epicondylitis, unspecified elbow Plan Was able to better localize her pain areas. Suspect myofascial pain/trigger points in left upper trapezius that is radiating down the left arm. Suspect left medial epicondylitis/golfer's elbow/common flexor tendinopathy. Rule out left Carpal Tunnel Syndrome. We can trial trigger point injections today to left upper trapezius. Patient was eager to proceed and the procedure done without complications. We can trial counterforce brace for the left elbow and wrist splints for left hand. Referring her to Physical therapy for left neck, elbow and hand pain. Work note to be given today. She will send me work forms to be filled up. Orders: Orders PT Evaluation and Treatment Today M77.00 - Medial epicondylitis, unspecified elbow, M79.18 - Myalgia, other site, R20.0 - Anesthesia of skin NE electromyogram (EMG) Today R20.0 - Anesthesia of skin NE nerve conduction velocity Today R20.0 - Anesthesia of skin Trigger Point Injection Today M79.18 - Myalgia, other site Coding Level of Care Code Est Pt Level 4 (27495) Diagnoses Myofascial pain M79.18 Hand numbness R20.0 Medial epicondylitis M77.00 CPT Codes Therapeutic Injection - Ther Injection 1: 20805-Crfbexa Point Injection 1 or 2 sites ([id number])
[2023-02-28 10:39] VITALS: BMI 20.5
== END 2023-02-28 11:25 | disposition home or self-care (01) ==
PROVIDERS: PCP Internal Medicine; Visit Provider Physical Medicine & Rehabilitation
DX: M79.18 Myalgia, other site (principal); R20.0 Anesthesia of skin; M77.02 Medial epicondylitis, left elbow
CPT/HCPCS: 20552; 99214

== ENCOUNTER 2023-03-14 11:11 | Outpatient (AMB) | payer OTHER, SELFPAY ==
[2023-03-14 11:13] VITALS: BMI 20.5
--- NOTE | 2023-03-14 11:13 | MHC.OFFVIS ---
Intake Vital Signs 03/14/23 11:13 Height 5 ft 6 in Weight 127 lb BMI 20.5 Intake Visit Reasons: ov- Trigger point injection Intake Note: Jolynn is a 43 year old female who presents today for a second trigger point injection that was administered in the left trapizeius. Patient reports that the initial relief was felt but after about 10-15 minutes the pain had returned. She is taking cyclobenzapine which does help but she has ran out of it. The pain is felt worse at night. She has frequent popping if the shoulder which is very painful. Allergies aspirin [ASPIRIN] Allergy (Severe, Verified 02/28/23 10:40) ANAPHYLAXIS, throat closes, chest pain, throat swelling HPI HPI Comments History of Present Illness Details Here for 2nd trigger point injection. There are some relief from last week. At least 20% better. Pain remains 12/25. [facility] Medical History (Updated 02/28/23 @ 10:58 by Alexandra Ghosh MD) Hand numbness Myofascial pain Anxiety and depression Fracture of left distal radius Migraine Surgical History History of open reduction and internal fixation (ORIF) procedure History of facial surgery Family History Father No problems noted. Mother Abdominal hernia History of back surgery Heart murmur CVD (cardiovascular disease) Arthritis Mental health disorder Brother No problems noted. Brother No problems noted. Brother No problems noted. Sister No problems noted. Son No problems noted. Social History Housing: House Alcohol intake: current Alcohol intake frequency: a few times a month Alcohol type: wine Patient Tobacco Use Status: Former Tobacco user e-Cigarette/Vaping Use: Currently Using Substance Use Type: Marijuana service: No Current occupational status: employed Cognitive needs: No Hearing needs: No Vision needs: Yes Physical Exam Vital Signs: BMI result Body Mass Index 20.5 Office Procedures Therapeutic Injection Therapeutic Injection Details: Trigger point injection, left upper trapezius. Conset obtained. Trigger points palpated on left upper trapezius. 1 ml of 2% Lidocaine injected in each site, total of 3 mL. Patient tolerated procedure well. Post-injection instructions given. 42263-Prcyggk Point Injection =/>3 sites All charges added?: Procedure code (CPT) selection complete Assessment & Plan Assessment & Plan (1) Myofascial pain: Code(s): M79.18 - Myalgia, other site Plan Tolerated procedure well. Third injection next week. Orders: Orders Trigger Point Injection Today M79.18 - Myalgia, other site Coding Level of Care Code Procedure Only Diagnoses Myofascial pain M79.18 CPT Codes Therapeutic Injection - Ther Injection 2: 50103-Lodcfwn Point Injection =/>3 sites ([id number])
== END 2023-03-14 11:28 | disposition home or self-care (01) ==
PROVIDERS: PCP Internal Medicine; Visit Provider Physical Medicine & Rehabilitation
DX: M79.18 Myalgia, other site (principal)
CPT/HCPCS: 20553

== ENCOUNTER → 2023-03-14 11:11 | Outpatient (BNVA) | payer OTHER, SELFPAY | PROVIDERS: PCP Internal Medicine; Visit Provider Physical Medicine & Rehabilitation | DX: M79.18 Myalgia, other site (principal) | CPT/HCPCS: 20553 ==

== ENCOUNTER 2023-03-21 09:24 | Outpatient (AMB) | payer OTHER, SELFPAY ==
--- NOTE | 2023-03-21 09:33 | MHC.OFFVIS ---
Intake Intake Visit Reasons: ov- Trigger point injection Intake Note: Jolynn is a 43 year old female who presents today for a third trigger point injection for her left trapizeius. Allergies aspirin [ASPIRIN] Allergy (Severe, Verified 03/21/23 09:34) ANAPHYLAXIS, throat closes, chest pain, throat swelling HPI HPI Comments History of Present Illness Details Here for 3rd trigger point injection. Past injections have given her at least temporary relief. She is scheduled for EMG next week. Scheduled to start PT. [facility] Medical History (Updated 02/28/23 @ 10:58 by Alexandra Ghosh MD) Hand numbness Myofascial pain Anxiety and depression Fracture of left distal radius Migraine Surgical History History of open reduction and internal fixation (ORIF) procedure History of facial surgery Family History Father No problems noted. Mother Abdominal hernia History of back surgery Heart murmur CVD (cardiovascular disease) Arthritis Mental health disorder Brother No problems noted. Brother No problems noted. Brother No problems noted. Sister No problems noted. Son No problems noted. Social History Housing: House Alcohol intake: current Alcohol intake frequency: a few times a month Alcohol type: wine Patient Tobacco Use Status: Former Tobacco user e-Cigarette/Vaping Use: Currently Using Substance Use Type: Marijuana service: No Current occupational status: employed Cognitive needs: No Hearing needs: No Vision needs: Yes Office Procedures Therapeutic Injection Therapeutic Injection Details: Trigger point injection, left upper trapezius, 3rd of series of 3. Conset obtained. Two trigger points palpated on left upper trapezius. 1 ml of 1% Lidocaine injected in each site, total of 2 mL. Patient tolerated procedure well. Post-injection instructions given. 68356-Hdojycs Point Injection 1 or 2 sites All charges added?: Procedure code (CPT) selection complete Results Reviewed Results Reviewed: 03/21/23 09:26 Lidocaine HCl 2 % MPF [Xylocaine 2 % MPF] 5 ml .ROUTE .[facility] XR/XR cervical spine 3V IMPRESSION: 1. Mild straightening of cervical lordosis otherwise unremarkable cervical spine exam. 2. Unremarkable left shoulder. 3. Old healed distal radial fracture with hardware. Unhealed ulnar styloid process fracture. No acute fracture or dislocation seen in the left hand or wrist area. Assessment & Plan Assessment & Plan (1) Myofascial pain: Code(s): M79.18 - Myalgia, other site Plan Last injection in series of 3 trigger point injections. Temporary relief so far. Scheduled for EMG next week. To start PT. Follow up in 6 weeks if we need further imaging. Last cervical x-ray was normal. Orders: Orders Trigger Point Injection Today M79.18 - Myalgia, other site Coding Level of Care Code Procedure Only Diagnoses Myofascial pain M79.18 CPT Codes Therapeutic Injection - Ther Injection 1: 80556-Ldmkfdo Point Injection 1 or 2 sites ([id number])
== END 2023-03-21 09:45 | disposition home or self-care (01) ==
PROVIDERS: PCP Internal Medicine; Visit Provider Physical Medicine & Rehabilitation
DX: M79.18 Myalgia, other site (principal)
CPT/HCPCS: 20552

== ENCOUNTER → 2023-03-21 09:24 | Outpatient (BNVA) | payer OTHER, SELFPAY | PROVIDERS: PCP Internal Medicine; Visit Provider Physical Medicine & Rehabilitation | DX: M79.18 Myalgia, other site (principal) | CPT/HCPCS: 20552 ==

== ENCOUNTER 2023-03-28 13:34 | Outpatient (REF) | payer OTHER, SELFPAY ==
--- NOTE | 2023-03-28 | EMG_ITS ---
Chief complaint: Myofascial pain, left upper trapezius, left hand numbness Reason for referral: Evaluate for Carpal Tunnel Syndrome versus radiculopathy Procedure done: Left upper extremity NCS/EMG Precautions and/or limitations: None The limb temperature was monitored continuously and remained between 32-36 degrees C during the performance of the NCS. Nerve Conduction Studies Anti Sensory Summary Table ?Stim Site NR Onset (ms) Norm Onset (ms) Peak (ms) Norm Peak (ms) O-P Amp (?V) Norm O-P Amp Site1 Site2 Delta-0 (ms) Dist (cm) Bob (m/s) Norm Bob (m/s) Left Median Anti Sensory (2nd Digit) Wrist ? 3.0 3.6 <3.6 36.6 >10 Wrist 2nd Digit 3.0 14.0 47 Left Ulnar Anti Sensory (5th Digit) Wrist ? 2.8 3.2 <3.7 86.4 >15.0 Wrist 5th Digit 2.8 14.0 50 Motor Summary Table ?Stim Site NR Onset (ms) Norm Onset (ms) O-P Amp (mV) Norm O-P Amp iAmp (mV) Amp (1st) (%) Site1 Site2 Delta-0 (ms) Dist (cm) Bob (m/s) Norm Bob (m/s) Left Median Motor (Abd Poll Brev) Wrist ? 3.4 <3.9 15.7 >4.5 17.8 100.0 Elbow Wrist 3.5 19.0 54 >45 Elbow ? 6.9 14.9 17.0 94.9 Left Ulnar Motor (Abd Dig Minimi) Wrist ? 2.8 <3.0 7.2 >5 8.3 100.0 B Elbow Wrist 2.9 18.0 62 >45 B Elbow ? 5.7 6.5 7.7 90.3 A Elbow B Elbow 1.6 10.0 63 >45 A Elbow ? 7.3 5.5 6.5 76.4 Comparison Summary Table ?Stim Site NR Peak (ms) Norm Peak (ms) P-T Amp (?V) Site1 Site2 Delta-P (ms) Norm Delta (ms) Left Median/Radial Dig I Comparison (Digit 1 - 10cm) Median ? 2.9 <2.9 34.6 Median Radial 0.3 Radial ? 3.2 <2.8 24.8 EMG ?Side Muscle Nerve Root Ins Act Fibs Psw Amp Dur Poly Recrt Int Pat Comment Left 1stDorInt Ulnar C8-T1 Nml Nml Nml Nml Nml 0 Nml Complete Left FlexCarRad Median C6-7 Nml Nml Nml Nml Nml 0 Nml Complete Left Biceps Musculocut C5-6 Nml Nml Nml Nml Nml 0 Nml Complete Left Triceps Radial C6-7-8 Nml Nml Nml Nml Nml 0 Nml Complete Left Deltoid Axillary C5-6 Nml Nml Nml Nml Nml 0 Nml Complete FINDINGS: All motor and sensory nerves tested showed normal latencies, amplitudes and conduction velocities. Concentric needle EMG was performed in selected muscles of the left upper extremity. Study did not reveal signs of electric abnormalities as shown in the table below. IMPRESSION: 1. This is a normal study. 2. There is no electrodiagnostic evidence for median neuropathy, ulnar neuropathy, brachial plexopathy, or cervical radiculopathy. Thank you for your kind referral. Alexandra Ghosh MD, STELLA Board Certified, [place] [employer] and [employer] (ABPMR) Board Certified, [place] Board [employer] Electrodiagnostic Medicine (ABEM) CODIN 33042 MTDD
== END 2023-03-28 13:35 | disposition home or self-care (01) ==
LOC: HO.NEURO 13:34
PROVIDERS: PCP Internal Medicine; Visit Provider Physical Medicine & Rehabilitation
DX: R20.0 Anesthesia of skin (principal)
CPT/HCPCS: 95886; 95909

== ENCOUNTER → 2023-03-28 13:38 | Outpatient (BNV) | payer OTHER, SELFPAY | PROVIDERS: PCP Internal Medicine; Visit Provider Physical Medicine & Rehabilitation | DX: M79.602 Pain in left arm (principal); M79.18 Myalgia, other site; R20.2 Paresthesia of skin | CPT/HCPCS: 95886; 95909 ==

== ENCOUNTER 2023-03-30 13:27 | Outpatient (AMB) | payer OTHER, SELFPAY ==
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
[2023-03-30 13:30] VITALS: BP 100/60; PULSE 69; TEMP 36.1; O2SAT 96
== END 2023-03-30 14:18 | disposition home or self-care (01) ==
PROVIDERS: PCP Internal Medicine; Visit Provider Nurse Practitioner Family
DX: M25.512 Pain in left shoulder (principal); G89.29 Other chronic pain; M79.12 Myalgia of auxiliary muscles, head and neck
CPT/HCPCS: 99204

== ENCOUNTER → 2023-03-30 13:27 | Outpatient (BNVA) | payer OTHER, SELFPAY | PROVIDERS: PCP Internal Medicine; Visit Provider Nurse Practitioner Family | DX: M25.512 Pain in left shoulder (principal); M79.12 Myalgia of auxiliary muscles, head and neck; G89.29 Other chronic pain | CPT/HCPCS: 99202 ==

== ENCOUNTER 2024-06-05 11:10 | Outpatient (AMB) | payer OTHER, SELFPAY ==
--- NOTE | 2024-06-05 12:54 | AM.OFFWIN_ITS ---
Intake Vital Signs 06/05/24 13:01 Height 5 ft 6 in Weight 147 lb BMI 23.7 BP 108/66 Blood Pressure Location Lt brachial Position Sitting Pulse 51 Pulse Source Pulse Oximeter Pulse Oximetry (%) 99 Oxygen Delivery Method Room Air Intake Visit Reasons: EP pain in upper lt rib back- [phone] Intake Note: Patient here for upper left rib pain that has been present since yesterday, states that the pain radiates up to the shoulder Patient Tobacco Use Status: Former Tobacco user Allergies aspirin [ASPIRIN] Allergy (Severe, Verified 06/05/24 12:55) ANAPHYLAXIS, throat closes, chest pain, throat swelling Do you need a note to return to daycare/school/sports/work: Yes HPI EP pain in upper lt rib back- [phone] HPI Details This note is constructed using voice recognition software. While every effort has been made to ensure accuracy, regional rehabilitation director errors may have been included. The patient is a 44 year old female who presents to the clinic today with left upper back pain since yesterday. She denies any specific activity that contributed to it, however she does work regularly. She denies numbness and tingling. Pain is worse if she raises her left arm or lays on it. She denies any specific rash, joint pains. She tried ibuprofen 800 mg which helped slightly. [facility] Medical History (Updated 03/30/23 @ 14:58 by Mitzy Kerr [facility]) Sternocleidomastoid muscle tenderness Left shoulder pain Right shoulder pain Fibromyalgia Hand numbness Myofascial pain Anxiety and depression Fracture of left distal radius Migraine Surgical History History of open reduction and internal fixation (ORIF) procedure History of facial surgery Family History (Updated 03/30/23 @ 13:42 by WILLOW Jerome) Father No problems noted. Mother Abdominal hernia History of back surgery Heart murmur CVD (cardiovascular disease) Arthritis Mental health disorder Lupus Brother No problems noted. Brother No problems noted. Brother No problems noted. Sister No problems noted. Son No problems noted. 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 Cognitive needs: No Hearing needs: No Vision needs: Yes Review of Systems Const All systems reviewed & are unremarkable except as noted in HPI and below Physical Exam Vital Signs: Last Vital Signs Pulse 51 06/05/24 13:01 BP 108/66 06/05/24 13:01 Pulse Ox 99 06/05/24 13:01 Oxygen Delivery Method Room Air 06/05/24 13:01 BMI result Body Mass Index 23.7 Const General: cooperative, healthy appearing, comfortable, no acute distress and well developed Orientation/consciousness: patient oriented x3 Limitations: no limitations HEENT Head: Yes normal to inspection Ears: hearing grossly normal bilaterally General nose exam: Normal external nose present Face and sinus: Yes normal facial exam Eyes General: appearance normal, both eyes and all related structures Neck Neck: Yes normal visual inspection and Yes full ROM Resp Effort & Inspection: normal respiratory effort and able to speak in complete sentences Auscultation: clear to auscultation bilaterally Cardio Rate: regular rate Rhythm: regular rhythm Heart sounds: normal S1 and S2 GI Inspection: Yes normal to inspection Palpation (GI): Soft to palpation and nontender Back/Spine/Pelvis Other: Left trapezius increased muscle bulging with tenderness on palpation. Reduced abduction due to pain. Strength 5/5, equal bilaterally. Distal neurovascular exam intact. Skin Other: No ecchymosis, edema, erythema. General skin exam: no rashes or lesions noted Neuro General: patient oriented x3 Extrem General: Yes normal to inspection Assessment & Plan Assessment & Plan (1) Left shoulder pain: Code(s): M25.512 - Pain in left shoulder Qualifiers: Chronicity: chronic Qualified Code(s): M25.512 - Pain in left shoulder; G89.29 - Other chronic pain Plan: Appears muscular in origin. Advised NSAIDs, muscle relaxer prescribed today for symptomatic management. Advised heat/ice, muscle rubs. Consider return to primary care with ongoing or worsening symptoms for consideration of appropriateness of physical therapy. Plan See above for full details and plan. Medications: New cyclobenzaprine 10 mg PO TID PRN 15 tabs 0RF muscle spasm Coding Level of Care Code Est Pt Level 3 (02722) Diagnoses Chronic left shoulder pain M25.512; G89.29 Chronicity: chronic
[2024-06-05 13:01] VITALS: BP 108/66; PULSE 51; O2SAT 99; BMI 23.7
== END 2024-06-05 13:11 | disposition home or self-care (01) ==
PROVIDERS: PCP Internal Medicine; Visit Provider Registered Nurse
DX: M25.512 Pain in left shoulder (principal); G89.29 Other chronic pain

== ENCOUNTER → 2024-06-05 11:10 | Outpatient (BNVA) | payer OTHER, SELFPAY | PROVIDERS: PCP Internal Medicine; Visit Provider Registered Nurse | DX: M25.512 Pain in left shoulder (principal); G89.29 Other chronic pain | CPT/HCPCS: 99212 ==

== ENCOUNTER 2024-08-05 13:38 | Outpatient (AMB) | payer OTHER, SELFPAY ==
--- NOTE | 2024-08-05 14:08 | MHC.OFFWIV ---
Intake Vital Signs 08/05/24 14:11 Weight 154 lb BP 130/90 H Blood Pressure Location Rt brachial Position Sitting Pulse 68 Pulse Source Pulse Oximeter Pulse Oximetry (%) 98 Oxygen Delivery Method Room Air Intake Visit Reasons: EP-neck, lt shoulder & lower back pain Intake Note: Patient here for muscle spasms that started at the shoulder and radiate down the back and has been an ongoing issue. Patient Tobacco Use Status: Former Tobacco user Allergies aspirin [ASPIRIN] Allergy (Severe, Verified 08/05/24 14:12) ANAPHYLAXIS, throat closes, chest pain, throat swelling Medication List - Last Reconciled 08/05/24 by Chela Alex MD buspirone 10 mg PO BID cyclobenzaprine 5 mg PO TID PRN 30 days duloxetine mg PO DAILY propranolol 20 mg PO TID PRN Do you need a note to return to daycare/school/sports/work: Yes HPI EP-neck, lt shoulder & lower back pain HPI Details History of Present Illness - The patient is a 44-year-old female presenting with muscle spasms and shoulder pain. - Chronic muscle spasms noted especially affecting the left side, above the shoulder - Previous treatment from orthopedics discontinued due to work demands. 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 - Treatment history mentions use of physical therapy, application of heat, and injections. Muscle relaxants, when taken, assist with sleep. Patient Instructions - Use the prescribed muscle relaxer as needed. - Naproxen prescribed for 12-hour relief. Review of Systems - General: No fever no chills - Neurological: No headaches no dizziness - Ear nose throat: No sore throat no hearing difficulty no ear pain - Cardiovascular: No syncope, no chest pain, no palpitations - Gastrointestinal: No nausea vomiting or diarrhea - Endocrine: No polyuria polydipsia no heat intolerance - Genitourinary: No dysuria - Skin: No new complaints [facility] Medical History Sternocleidomastoid muscle tenderness Left shoulder pain Right shoulder pain Fibromyalgia Hand numbness Myofascial pain Anxiety and depression Fracture of left distal radius Migraine Surgical History History of open reduction and internal fixation (ORIF) procedure History of facial surgery Family History Father No problems noted. Mother Abdominal hernia History of back surgery Heart murmur CVD (cardiovascular disease) Arthritis Mental health disorder Lupus Brother No problems noted. Brother No problems noted. Brother No problems noted. Sister No problems noted. Son No problems noted. 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 Site of pain, discomfort with palpation cervical head Neuro General: patient oriented x3 Psych Mental Status: mental status grossly normal Assessment & Plan Assessment & Plan (1) Strain of left trapezius muscle: Code(s): S46.812A - Strain of other muscles, fascia and tendons at shoulder and upper arm level, left arm, initial encounter Qualifiers: Encounter type: initial encounter Qualified Code(s): S46.812A - Strain of other muscles, fascia and tendons at shoulder and upper arm level, left arm, initial encounter Plan History of Present Illness - The patient is a 44-year-old female presenting with muscle spasms and shoulder pain. - Chronic muscle spasms noted especially affecting the left side, above the shoulder - Previous treatment from orthopedics discontinued due to work demands. 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 - Treatment history mentions use of physical therapy, application of heat, and injections. Muscle relaxants, when taken, assist with sleep. Patient Instructions - Use the prescribed muscle relaxer as needed. - Naproxen prescribed for 12-hour relief. Medications: New tramadol 50 mg PO BEDTIME 30 days PRN 30 tabs 0RF pain Changed From cyclobenzaprine 10 mg PO TID PRN 15 tabs 0RF muscle spasm To cyclobenzaprine 5 mg PO TID 30 days PRN 90 tabs 0RF muscle spasm Coding Level of Care Code Est Pt Level 3 (75354) Diagnoses Strain of left trapezius muscle, initial encounter S46.812A Encounter type: initial encounter
[2024-08-05 14:11] VITALS: BP 130/90; PULSE 68; O2SAT 98
--- OUTSIDE RECORDS SUMMARY | 2024-08-05 14:32 | XMS_ITS | Clinical Summary ---
Author Organization [employer] Address [address] [facility] [address] [place] [address] Care Team Providers Care Waiter/Waitress First Class Name Role Phone Unavailable Primary Care Provider Unavailabl e Encounters Date Type Department Care Team Description 06/26/2024 Telephone [facility] [address] [place], [place] [phone] Brigido Gerber MD New Patient from Last 3 Months Social History Tobacco Use Types Packs/Day Years Used Date Smoking Tobacco: Never Assessed Comments Unknown Sex and Gender Information Value Date Recorded Sex Assigned at Not on file Legal Sex Female 3:36 PM EST Gender Identity Not on file Sexual Orientation Not on file Plan of Treatment Health Maintenance Due Date Last Done Comments Depression Screening 1981 HIV Screening 1981 SDOH Screening 1981 Alcohol/Substance Use Screening 1993 Tobacco Screening 1993 Family Planning (PISQ) 02/09/1996 Hepatitis C Screening 1999 DTaP/Tdap/Td Vaccines (1 - Tdap) 02/09/2000 Hepatitis B Vaccines (1 of 3 - 19+ 3-dose series) 02/09/2000 Pap Smear 2002 Cervical Cancer Screening 2011 HPV/Cotest 2011 Mammogram 2021 COVID-19 Vaccine ( - 2023-2 5 season) 2024 Influenza Vaccine (#1) 2024 Zoster Vaccines (1 of 2) 2031 RSV Patients and Pa tients Aged 60 years or older (1 - 1-dose 75+ series) 02/09/2056 HIB Vaccines Aged Out No longer eligi ble based on patient's age to complete this topic HPV Vaccines Aged Out No longer eligi ble based on patient's age to complete this topic Hepatitis A Vaccines Aged Out No long er eligible based on patient's age to complete this topic IPV Vaccines Aged Out No longer eligi ble based on patient's age to complete this topic Meningococcal Vaccine Aged Out No kiki damon eligible based on patient's age to complete this topic Pneumococcal Vaccine: Pediat rics (0 to 5 Years) and At-Risk Patients (6 to 49) Years) Aged Out No longer eligible b ased on patient's age to complete this topic RSV under 20 months Aged Out No longe r eligible based on patient's age to complete this topic Rotavirus Vaccines Aged Out No longer eligible based on patient's age to complete this topic
--- OUTSIDE RECORDS SUMMARY | 2024-08-05 14:33 | XMS_ITS | Encounter Summary ---
Author Organization [employer] Address [address] [place] [address] [address] [place] [address] Care Team Providers Care Slabber Light Name Role Phone Unavailable Primary Care Provider Unavailabl e Reason for Visit * Reason Onset Date Comments New Patient 06/26/2024 Encounter Details Date Type Department Care Team (Late st Contact Info) Description 06/26/2024 Telephone [facility] [address] [place], [place] [phone] Brigido Gerber MD [address] [place], [place] [phone] New Patient Social History Tobacco Use Types Packs/Day Years Used Date Smoking Tobacco: Never Assessed Comments Unknown Sex and Gender Information Value Date Recorded Sex Assigned at Not on file Legal Sex Female 3:36 PM EST Gender Identity Not on file Sexual Orientation Not on file documented as of this encounter Miscellaneous Notes * Telephone Encounter - Sae Barrios - 06/26/2024 3:38 PM EST TC from caller requesting NEW PATIENT visit . Medical Conditions: None stated Insurance name: CCA Member ID: Location: [facility] Demographic information updated documented in this encounter Plan of Treatment Not on file documented as of this encounter Visit Diagnoses Not on filedocumented in this encounter
== END 2024-08-05 14:24 | disposition home or self-care (01) ==
PROVIDERS: PCP Internal Medicine; Visit Provider Internal Medicine
DX: S46.812A Strain of other muscles, fascia and tendons at shoulder and upper arm level, left arm, initial encounter (principal)

== ENCOUNTER → 2024-08-05 13:38 | Outpatient (BNVA) | payer OTHER, SELFPAY | PROVIDERS: PCP Internal Medicine | DX: S46.812A Strain of other muscles, fascia and tendons at shoulder and upper arm level, left arm, initial encounter (principal) | CPT/HCPCS: 99212 ==

== ENCOUNTER 2024-11-06 12:20 | Outpatient (AMB) | payer OTHER, SELFPAY ==
--- OUTSIDE RECORDS SUMMARY | 2024-11-06 12:31 | XMS_ITS | Encounter Summary ---
Author Organization [employer] Address [address] [place] [address] [address] [place] [address] Care Team Providers Care Senior Datastage Developer Name Role Phone Unavailable Primary Care Provider Unavailabl e Reason for Visit * Reason Onset Date Comments New Patient 06/26/2024 Encounter Details Date Type Department Care Team (Late st Contact Info) Description 06/26/2024 Telephone [facility] [address] [place], [place] [phone] Brigido Gerber MD [address] [place], [place] [phone] New Patient Social History Tobacco Use Types [...] stated Insurance name: CCA Member ID: Location: [facility] Demographic information updated documented in this encounter Plan of Treatment Not on file documented as of this encounter Visit Diagnoses Not on filedocumented in this encounter
--- OUTSIDE RECORDS SUMMARY | 2024-11-06 12:31 | XMS_ITS | Clinical Summary ---
Author Organization [employer] Address [address] [place] [address] [address] [place] [address] Care Team Providers Care Kitchen And Bath Designer Name Role Phone Unavailable Primary Care Provider Unavailabl e Social History Tobacco Use Types Packs/Day Years Used Date Smoking Tobacco: Never Assessed Comments Unknown Sex and Gender Information Value Date Recorded Sex Assigned at Not on file Legal Sex Female 3:36 PM EST Gender Identity Not on file Sexual Orientation Not on file Plan of Treatment Health Maintenance Due Date Last Done Comments Depression Screening 1981 HIV Screening 1981 SDOH Screening 1981 Disability Screening 1981 Alcohol/Substance Use Screening 1993 Tobacco [...] patient's age to complete this topic Meningococcal B Vaccine Aged Out No l onger eligible based on patient's age to complete [...]
--- NOTE | 2024-11-06 13:35 | AM.OFFWIN_ITS ---
Intake Vital Signs 3 11/06/24 13:37 Weight 156 lb BP 110/68 Blood Pressure Location Lt brachial Position Sitting Pulse 58 Pulse Source Pulse Oximeter Pulse Oximetry (%) 99 Oxygen Delivery Method Room Air Intake Visit Reasons: EP pain on neck & shoulder- [phone] Intake Note: Patient here for neck and shoulder pain that started last night. Patient Tobacco Use Status: Former Tobacco user Allergies aspirin [ASPIRIN] Allergy (Severe, Verified 11/06/24 13:48) ANAPHYLAXIS, throat closes, chest pain, throat swelling Do you need a note to return to daycare/school/sports/work: Yes HPI HPI Comments 2 History of Present Illness0 Details 44 y/o Female patient who [facility] with c/o Neck and shoulder pain that started last night. She does have Prior h/o Neck pain - had Physical therapy in past with minimal relief. She was receiving Steroid injections at Orthopedics but stopped going to the appointment because the injections did not work either. She takes Flexeril with some good relief but it makes her sleepy. She has tried Ibuprofen and Acetaminophen with no relief. [facility] Medical History (Updated 11/06/24 @ 15:00 by Elvira Bledsoe NP) Cervicalgia Vitamin D deficiency Dyslipidemia Leukopenia Sternocleidomastoid muscle tenderness Left shoulder pain Right shoulder pain Fibromyalgia Hand numbness Myofascial pain Anxiety and depression Fracture of left distal radius Migraine Surgical History History of open reduction and internal fixation (ORIF) procedure History of facial surgery Family History Father No problems noted. Mother Abdominal hernia History of back surgery Heart murmur CVD (cardiovascular disease) Arthritis Mental health disorder Lupus Brother No problems noted. Brother No problems noted. Brother No problems noted. Sister No problems noted. Son No problems noted. 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 Neck: Yes no lymphadenopathy Back/Spine/Pelvis Cervical Spine: cervical muscular tenderness, pain with cervical ROM, cervical spasm and Cervical spine tenderness Back/spine/pelvis image: 2 1. TTP Neuro General: patient oriented x3 Psych Speech and movement: Normal speech and movement present Assessment & Plan Assessment & Plan (1) Cervicalgia: Code(s): M54.2 - Cervicalgia Plan: Placed referral to Orthopedics for evaluation and treatment. Ordered Flexeril. Ice/Hot. Unable to send NSAIDs due to interaction and Allergy to ASA. Acetaminophen for pain relief. Orders: Referrals 2 Orthopedics Referral M54.2 - Cervicalgia Medications: New 2 cyclobenzaprine 10 mg PO BEDTIME 14 tabs 0RF M54.2 - Cervicalgia Discontinued 2 tramadol Discontinued Reason: Patient no longer taking 50 mg PO BEDTIME 30 days PRN 30 tabs 0RF pain cyclobenzaprine Discontinued Reason: Patient Completed Course 5 mg PO TID 30 days PRN 90 tabs 0RF muscle spasm Coding Level of Care Code Est Pt Level 4 (17602) Diagnoses Cervicalgia M54.2 Time Spent (min) 20
[2024-11-06 13:37] VITALS: BP 110/68; PULSE 58; O2SAT 99
== END 2024-11-06 14:55 | disposition home or self-care (01) ==
PROVIDERS: PCP Internal Medicine; Visit Provider Nurse Practitioner Family
DX: M54.2 Cervicalgia (principal)

== ENCOUNTER → 2024-11-06 12:20 | Outpatient (BNVA) | payer OTHER, SELFPAY | PROVIDERS: PCP Internal Medicine; Visit Provider Nurse Practitioner Family | DX: M54.2 Cervicalgia (principal) | CPT/HCPCS: 99212 ==

== ENCOUNTER 2024-12-02 16:45 | Emergency (ER) | payer OTHER, SELFPAY ==
[2024-12-02 17:14] VITALS: BP 112/40; PULSE 59; RESP 16; TEMP 36.1; O2SAT 100; BMI 24.2
--- NOTE | 2024-12-02 20:28 | ED.SKABFB ---
HPI - Skin/Abscess/Foreign Bdy General Chief complaint: Skin/Abscess/Foreign Body Stated complaint: L index finger inj Time Seen by Provider: 12/02/24 19:56 Source: patient Mode of arrival: ambulatory Limitations: no limitations History of Present Illness ED Provider: Dr. Mirna Arenas HPI narrative: Previously healthy 44-year-old female presenting with left index finger pain, swelling and pus accumulation under the nail bed. This has been ongoing for the last couple of days. No other wounds or injuries. She wears press on nails. No fever. No redness tracking towards the hand. Related Data Home Medications ?Medication ?Instructions ?Recorded ?Confirmed buspirone 7.5 mg tablet 10 mg PO BID 02/15/23 08/05/24 propranolol 20 mg tablet 20 mg PO TID PRN anxiety 06/05/24 08/05/24 duloxetine 30 mg capsule,delayed mg PO DAILY 08/05/24 08/05/24 release Previous Rx's ?Medication ?Instructions ?Recorded cyclobenzaprine 10 mg tablet 10 mg PO BEDTIME #14 tabs 11/06/24 Allergies Allergy/AdvReac Type Severity Reaction Status Date / Time aspirin [ASPIRIN] Allergy Severe ANAPHYLAXIS, Verified 12/02/24 17:15 throat closes, chest pain, throat swelling Review of Systems Review of Systems: Yes all other systems are reviewed and are negative [facility] Past Medical History Attestation statement: The following information was validated with the patient. [facility] Narrative: Denies medical or surgical history Source: old records reviewed Medical History (Updated 12/02/24 @ 21:07 by Mirna Arenas DO) Cervicalgia Vitamin D deficiency Dyslipidemia Leukopenia Sternocleidomastoid muscle tenderness Left shoulder pain Right shoulder pain Fibromyalgia Hand numbness Myofascial pain Anxiety and depression Fracture of left distal radius Migraine Surgical History History of open reduction and internal fixation (ORIF) procedure History of facial surgery Family History Family History Father No problems noted. Mother Abdominal hernia History of back surgery Heart murmur CVD (cardiovascular disease) Arthritis Mental health disorder Lupus Brother No problems noted. Brother No problems noted. Brother No problems noted. Sister No problems noted. Son No problems noted. 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 Cognitive needs: No Hearing needs: No Vision needs: Yes Physical Exam Vital Signs: Vital Signs: Last Vital Signs Temp 97.2 F 12/02/24 20:29 Pulse 54 12/02/24 20:29 Resp 18 12/02/24 20:29 BP 115/71 12/02/24 20:29 Pulse Ox 100 12/02/24 20:29 O2 Del Method Room Air 12/02/24 20:29 BMI result Body Mass Index 24.2 Constitutional: Well-appearing, no acute distress HEENT: No lymphadenopathy, neck is supple, trachea midline, PERRLA, EOMI, no nystagmus Chest: Equal rise, no crepitus, no deformities Respiratory: Lungs are clear to auscultation bilaterally, no wheezes/rales/rhonchi Cardio: Regular rate and rhythm, no murmurs rubs or gallops, peripheral pulses strong GI: Soft, nondistended, nontender to palpation, positive bowel sounds in all quadrants : Deferred Skin: Warm, dry, no rashes Musculoskeletal: No deformities, normal tone, erythema, swelling noted to the distal phalanx of the left index finger with paronychia surrounding the nail bed, mild fluctuance, erythema does not extend past the DIP joint, neurovascularly intact Neuro: Alert and oriented, cranial nerves 2-12 intact, equal strength and sensation in bilateral upper and lower extremities Psych: Normal affect, appropriate mood, no visual or auditory hallucinations Medications Administered Discontinued Medications Generic Name Dose Route Start Last Admin Trade Name Freq PRN Reason Stop Dose Admin Lidocaine HCl 5 ml 12/02/24 20:20 12/02/24 20:55 Lidocaine Hcl 1 % 20 Ml Vial INFILTRATI 12/02/24 20:21 5 ml ONCE ONE Administration Medical Decision Making Medical Decision Making MDM Narrative: Patient presents today with chief complaint of possible infection. Differential diagnosis includes paronychia, abscess, cellulitis, deep space infection such as fasciitis, bone infection, vascular abnormality, among many others. Findings are not consistent with fasciitis specifically with no crepitus, blistering of the skin, pain out of proportion, hemodynamic instability, poor historical factors. Based on physical examination, incision and drainage was warranted. 9:08 p.m. patient tolerated procedure well. Plan for discharge home and outpatient follow-up. Discussed return precautions and wound care. Discharged in stable condition. Differential Diagnosis Differential Diagnoses: The differential diagnosis associated with the presentation includes (see above) Procedures Abscess I/D Site: hand (left index finger) Side (if applicable): left Sedation/analgesia: none Local Anesthetic: lidocaine 1% Amount of anesthesia used (mL): 5 Technique: incised with blade Amount of fluid expressed (mL): 3 Sent for culture/gram staining?: No Irrigation: No Packing used?: none Complications: pain and bleeding Discharge Plan Discharge Clinical Impression: Paronychia of left index finger Patient Disposition: Home, Self-Care Instructions: Paronychia (ED) Additional Instructions: Keep your wound clean and dry for the next 24 hours. After that, you may get the area wet, but do not soak it until the wound is healed. Do not do dishes or take a bath. Do not go into a pool. Use Motrin and Tylenol for pain. Keep your hand elevated and tried to ice it frequently to help with swelling. Return to the emergency department immediately with any new or worsening symptoms including: Worsening swelling, redness that tracks towards your wrist, fevers greater than 100?, any new symptom that concerns you. Call 911 with any medical emergency. Prescriptions: No Action buspirone 7.5 mg tablet 10 mg PO BID propranolol 20 mg tablet 20 mg PO TID PRN (Reason: anxiety) duloxetine 30 mg capsule,delayed release(DR/EC) PO DAILY cyclobenzaprine 10 mg tablet 10 mg PO BEDTIME Qty: 14 0RF Print Language: Nepali
[2024-12-02 20:29] VITALS: BP 115/71; PULSE 54; RESP 18; TEMP 36.2; O2SAT 100
[2024-12-02] MEDS: Lidocaine HCl 1 % 20 ML VIAL 5 ML INFILTRATI (20:55)
[2024-12-02 21:16] VITALS: BP 115/71; PULSE 54; RESP 18; TEMP 36.2; O2SAT 100
== END 2024-12-02 21:16 | disposition home or self-care (01) ==
PROVIDERS: Emergency Provider Emergency Medicine; PCP Internal Medicine
DX: L03.012 Cellulitis of left finger (principal); M79.645 Pain in left finger(s)
CPT/HCPCS: 10060; 99283; 99284; J2003

== ENCOUNTER 2025-03-13 12:01 | Outpatient (AMB) | payer OTHER, SELFPAY ==
--- NOTE | 2025-03-13 12:02 | A.OFFVIS_ITS ---
Vital Signs 03/13/25 12:09 Height 5 ft 5 in Weight 150 lb BMI 25.0 Intake Visit Reasons: Newprob-Neck pain, right side Intake Note: Steffi is a 45 year old female right hand dominant who presents today as a follow up for left sided neck pain. At last visit on 03/21/23 we did the 3rd Euflexxa injection. At today's visit patient states that she was supposed to be booked for Botox in 2023 but missed her appointment and never reached back to our office. Patient states that the left side of her neck is constant and the pain is still radiating down to her forearm. She reports that her left arm and forearm do have swelling, which is very sporadic. Patient reports that she has not attended physical therapy or injections. She also reports that since October of this year she has been going to walk in clinics to get pain medications, cycobenzaprine. Allergies aspirin (ASPIRIN) Allergy (Severe, Verified 03/13/25 12:10) ANAPHYLAXIS, throat closes, chest pain, throat swelling HPI Comments Details: Previously seen in 2022 for left-sided neck pain. Trigger point injections performed, with patient reporting good improvement. EMG done 03/28/2023 upper extremities was normal. Noted walk in clinic visit in October 2024. X-ray done in 2022 was unremarkable except for loss of lordosis. I have not seen her since 2022. Patient says that she has just been dealing with the pain but it is the same issue. Still left-sided. Can still radiate down to the arm. Very little numbness in the hand. No new weakness. No new medical issues. [facility] Medical History (Updated 12/03/24 @ 00:01 by Renuka Ralph) Cervicalgia Vitamin D deficiency Dyslipidemia Leukopenia Sternocleidomastoid muscle tenderness Left shoulder pain Right shoulder pain Fibromyalgia Hand numbness Myofascial pain Anxiety and depression Fracture of left distal radius Migraine Surgical History History of open reduction and internal fixation (ORIF) procedure History of facial surgery Family History Father No problems noted. Mother Abdominal hernia History of back surgery Heart murmur CVD (cardiovascular disease) Arthritis Mental health disorder Lupus Brother No problems noted. Brother No problems noted. Brother No problems noted. Sister No problems noted. Son No problems noted. 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 MSK: Inspection reveals appropriate head and neck positioning. Cervical ROM was full. Spurling's sign negative. Pain again focally localized on left upper trapezius. No scapular winging. Neurological: Neurologic examination of the upper and lower extremities was nonfocal with intact sensation, muscle stretch reflexes and without focal motor deficits . Allred?s negative bilaterally. Babinski was down going bilaterally. Clonus was negative. Gait is non-antalgic without loss of balance. Results Reviewed Results Reviewed: XR/XR cervical spine 32022 IMPRESSION: 1. Mild straightening of cervical lordosis otherwise unremarkable cervical spine exam. 2. Unremarkable left shoulder. 3. Old healed distal radial fracture with hardware. Unhealed ulnar styloid process fracture. No acute fracture or dislocation seen in the left hand or wrist area. Assessment & Plan Assessment & Plan (1) Cervicalgia: Code(s): M54.2 - Cervicalgia Category: Medical (2) Myofascial pain: Code(s): M79.18 - Myalgia, other site Category: Medical Plan Chronic left-sided neck pain, most likely myofascial on upper trapezius. However given its chronicity, we should rule out any nerve compression or disc herniation underlying. Repeat x-rays today. Patient had undergone adequate conservative management without improvement of condition. It would be reasonable to obtain further imaging such as MRI. An MRI would help rule out any serious condition, guide treatment and assess prognosis for recovery. Specifically ruling out left-sided disc herniation. Assessment and plan discussed with patient, and patient was agreeable. All questions were answered thoroughly. Follow up after MRI. Alexandra Ghosh MD, STELLA Board Certified, [place] Board of Physical Medicine and Rehabilitation (ABPMR) Board Certified, [place] Board of Electrodiagnostic Medicine (ABEM) Orders: Orders XR cervical spine 3V Today M54.2 - Cervicalgia MR cervical spine wo con Today M54.12 - Radiculopathy, cervical region Coding Level of Care Code Est Pt Level 4 (26938) Diagnoses Cervicalgia M54.2 Myofascial pain M79.18
[2025-03-13 12:09] VITALS: BMI 25.0
--- OUTSIDE RECORDS SUMMARY | 2025-03-13 13:47 | XMS_ITS | Clinical Summary ---
Author Organization [employer] Address [address] [place] [address] 7 [place] [address] Care Team Providers Care Av Specialist Name Role Phone Unavailable Primary Care Provider [...] Tobacco Screening 1993 Family Planning (PISQ) 02/09/1996 HPV Vaccines (1 - 3-dose series) 02/09/1996 Hepatitis C Screening 1999 DTaP/Tdap/Td Vaccines (1 - Tdap) 02/09/2000 Hepatitis B Vaccines (1 of 3 - 19+ 3-dose series) 02/09/2000 Pap Smear 2002 Cervical Cancer Screening 2011 HPV/Cotest 2011 Mammogram 2021 COVID-19 Vaccine (1 - 2023-2 5 season) 2025 Influenza Vaccine (#1) 2025 Zoster Vaccines (1 of 2) 2031 RSV [...] Years) and At-Risk Patients (6 to 49) Years Aged Out No longer eligible b ased on patient's age to complete this topic RSV under 20 months Aged Out No longe r eligible based on patient's age to complete this topic Rotavirus Vaccines Aged Out No longer eligible based on patient's age to complete this topic
--- OUTSIDE RECORDS SUMMARY | 2025-03-13 13:47 | XMS_ITS | Encounter Summary ---
Author Organization [facility] Address [address] [place] [address] [address] [place] [address] Care Team Providers Care Coupling Machine Operator Name Role Phone Unavailable Primary Care Provider Unavailabl e Reason for Visit * Reason Onset Date Comments New Patient 06/26/2024 Encounter Details Date Type Department Care Team (Late st Contact Info) Description 06/26/[address] [facility] MEDICINE [address] [place], [place] [phone] Brigido Gerber MD [address] [place], [place] [phone] New Patient Social History Tobacco Use Types [...] stated Insurance name: CCA Member ID: Location: [facility] Demographic information updated documented in this encounter Plan of Treatment Not on file documented as of this encounter Visit Diagnoses Not on filedocumented in this encounter
== END 2025-03-13 12:22 | disposition home or self-care (01) ==
PROVIDERS: PCP Internal Medicine; Visit Provider Physical Medicine & Rehabilitation
DX: M54.2 Cervicalgia (principal); M79.18 Myalgia, other site
CPT/HCPCS: 99214

== ENCOUNTER 2025-03-13 12:01 | Outpatient (REF) | payer OTHER, SELFPAY ==
--- NOTE | ~2025-03-13 | XR_ITS ---
EXAM: Three-view x-ray cervical spine TECHNIQUE: AP lateral and AP open-mouth odontoid view x-ray cervical spine INDICATION: Cervicalgia PRIOR: 02/21/2023 FINDINGS: There is straightening of the cervical lordosis. There is no prevertebral soft tissue swelling. C3-4 injuries mild disc space narrowing and posterior ossifies. C4-5 demonstrates subtle posterior osteophytes. C5-6 demonstrates mild disc space narrowing with endplate osteophytes, and subtle retrolisthesis C6/7 demonstrates ossification in the anterior disc annulus. XR/XR cervical spine 3V IMPRESSION: There is straightening of the expected cervical lordosis. This can be idiopathic, but can also be related to degenerative change, muscle spasm, or posterior soft tissue injury. Degenerative disc disease is most advanced at C3-4 and C5-6, and has progressed since the prior. Electronically signed by: Henry Haq MD 03/13/2025 12:31 PM EDT
== END 2025-03-13 12:02 | disposition home or self-care (01) ==
LOC: HO.HOSX 12:01
PROVIDERS: PCP Internal Medicine; Visit Provider Physical Medicine & Rehabilitation
DX: M54.12 Radiculopathy, cervical region (principal); M79.18 Myalgia, other site
CPT/HCPCS: 72040; 99212

== ENCOUNTER → 2025-03-13 12:10 | Outpatient (BNV) | payer OTHER, SELFPAY | PROVIDERS: PCP Internal Medicine; Visit Provider Radiology Diagnostic Radiology | DX: M50.322 Other cervical disc degeneration at C5-C6 level (principal) | CPT/HCPCS: 72040 ==

== ENCOUNTER 2025-04-17 09:50 | Outpatient (AMB) | payer OTHER, SELFPAY ==
--- NOTE | 2025-04-17 09:54 | A.OFFVIS_ITS ---
Intake Visit Reasons: OV- C Spine MRI Review Intake Note: Car is a 45 year old female who presents for her cervicalgia. At today's visit she states that her MRI is now booked for 04/30/25. She states that the lumbar pain is still the same no changes. She reports that she did notice that the left side of her neck now has a numbness, tingling that is sporadic. Allergies aspirin (ASPIRIN) Allergy (Severe, Verified 03/13/25 12:10) ANAPHYLAXIS, throat closes, chest pain, throat swelling Medication List - Last Reconciled 04/17/25 by Alexandra Ghosh MD buspirone 10 mg PO BID cyclobenzaprine 10 mg PO BEDTIME duloxetine mg PO DAILY propranolol 20 mg PO TID PRN HPI Comments Details: Previously seen in 2022 for left-sided neck pain. Trigger point injections performed, with patient reporting good improvement. EMG done 03/28/2023 upper extremities was normal. Noted walk in clinic visit in October 2024. X-ray done in 2022 was unremarkable except for loss of lordosis. I have not seen her since 2022. Patient says that she has just been dealing with the pain but it is the same issue. Still left-sided. Can still radiate down to the arm. Very little numbness in the hand. No new weakness. No new medical issues. Primary diagnosis is myofascial pain causing neck and shoulder pain. We did order cervical MRI to rule out spinal stenosis or disc herniation. It has not yet been done unfortunately. [facility] Medical History (Updated 12/03/24 @ 00:01 by Renuka Ralph) Cervicalgia Vitamin D deficiency Dyslipidemia Leukopenia Sternocleidomastoid muscle tenderness Left shoulder pain Right shoulder pain Fibromyalgia Hand numbness Myofascial pain Anxiety and depression Fracture of left distal radius Migraine Surgical History History of open reduction and internal fixation (ORIF) procedure History of facial surgery Family History Father No problems noted. Mother Abdominal hernia History of back surgery Heart murmur CVD (cardiovascular disease) Arthritis Mental health disorder Lupus Brother No problems noted. Brother No problems noted. Brother No problems noted. Sister No problems noted. Son No problems noted. 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 Neurological: Gait is non-antalgic without loss of balance. Results Reviewed Results Reviewed: Ordering Physician: Alexandra Bustamante Date of Service: 03/13/25 Procedure(s): XR cervical spine 3V Accession Number(s): [id number] cc: Ambar King MD; Alexandra Bustamante~ Reason for Exam: M54.2 - Cervicalgia EXAM: Three-view x-ray cervical spine TECHNIQUE: AP lateral and AP open-mouth odontoid view x-ray cervical spine INDICATION: Cervicalgia PRIOR: 02/21/2023 FINDINGS: There is straightening of the cervical lordosis. There is no prevertebral soft tissue swelling. C3-4 injuries mild disc space narrowing and posterior ossifies. C4-5 demonstrates subtle posterior osteophytes. C5-6 demonstrates mild disc space narrowing with endplate osteophytes, and subtle retrolisthesis C6/7 demonstrates ossification in the anterior disc annulus. XR/XR cervical spine 3V IMPRESSION: There is straightening of the expected cervical lordosis. This can be idiopathic, but can also be related to degenerative change, muscle spasm, or posterior soft tissue injury. Degenerative disc disease is most advanced at C3-4 and C5-6, and has progressed since the prior. Electronically signed by: Henry Haq MD 03/13/2025 12:31 PM EDT RP Assessment & Plan Assessment & Plan (1) Cervicalgia: Code(s): M54.2 - Cervicalgia Category: Medical (2) Myofascial pain: Code(s): M79.18 - Myalgia, other site Category: Medical Plan Chronic left-sided neck pain, most likely myofascial on upper trapezius. However given its chronicity, we should rule out any nerve compression or disc herniation underlying. Waiting for MRI to be done. Patient currently taking cyclobenzaprine which she said helps her sleep. Assessment and plan discussed with patient, and patient was agreeable. All questions were answered thoroughly. Follow up after MRI. Alexandra Ghosh MD, STELLA Board Certified, [place] Board of Physical Medicine and Rehabilitation (ABPMR) Board Certified, [place] Board of Electrodiagnostic Medicine (ABEM) Coding Level of Care Code Est Pt Level 3 (82592) Diagnoses Cervicalgia M54.2 Myofascial pain M79.18
--- OUTSIDE RECORDS SUMMARY | 2025-04-17 11:03 | XMS_ITS | Clinical Summary ---
Author Organization [employer] Address [address] [place] [address] [address] [place] [address] Care Team Providers Care Rn Cardiac Rehab Name Role Phone Unavailable Primary Care Provider [...]
--- OUTSIDE RECORDS SUMMARY | 2025-04-17 11:03 | XMS_ITS | Encounter Summary ---
Author Organization [employer] Address [address] [place] [address] [address] [place] [address] Care Team Providers Care Exhibit Builder Name Role Phone Unavailable Primary Care Provider Unavailabl e Reason for Visit * Reason Onset Date Comments New Patient 06/26/2024 Encounter Details Date Type Department Care Team (Late st Contact Info) Description 06/26/2024 Telephone [facility] MEDICINE [address] [place], [place] [phone] Brigido Gerber MD [address] [place], [place] [phone] New Patient Social History Tobacco Use Types [...]
== END 2025-04-17 10:21 | disposition home or self-care (01) ==
LOC: HO.HOS 09:51
PROVIDERS: Visit Provider Physical Medicine & Rehabilitation
DX: M54.2 Cervicalgia (principal); M79.18 Myalgia, other site
CPT/HCPCS: 99213

== ENCOUNTER → 2025-04-17 09:50 | Outpatient (BNVA) | payer OTHER, SELFPAY | PROVIDERS: Visit Provider Physical Medicine & Rehabilitation | DX: Z71.2 Person consulting for explanation of examination or test findings (principal); M54.2 Cervicalgia; M79.18 Myalgia, other site | CPT/HCPCS: 99212 ==